=== PATIENT | female | born 1970 | race Caucasian/White ===

== ENCOUNTER 2022-06-13 11:22 | Emergency (ER) | payer OTHER, SELFPAY ==
--- NOTE | ~2022-06-13 | XR_ITS ---
Left Hand Technique: PA, oblique, and lateral views were obtained. Clinical History: Fifth digit injury Findings: No acute fracture or dislocation is seen. Osseous alignment is anatomic. Joint spaces are p reserved. Soft tissues are unremarkable. Impression: Unremarkable left hand. Reviewed, dictated and finalized at location . Impression: Unremarkable left hand.
[2022-06-13 11:39] VITALS: BP 194/128; PULSE 106; RESP 20; TEMP 36.6; O2SAT 99
--- NOTE | 2022-06-13 11:54 | ECG_ITS ---
Measurements Intervals [place] Rate: 104 P: 57 GA: 137 QRS: 40 QRSD: 92 T: 50 QT: 344 QTc: 454 Interpretive Statements SINUS TACHYCARDIA ABNORMAL RHYTHM ECG NO PREVIOUS ECG AVAILABLE FOR COMPARISON Electronically Signed On 06-13-2022 12:05:49 CDT by Corinne Simon M.D.
[2022-06-13 12:02] VITALS: BP 204/115; PULSE 119; RESP 16; O2SAT 100
--- NOTE | 2022-06-13 12:26 | ED.UPPEXIN ---
HPI - Extremity Injury (Upper) General Chief Complaint: Extremity Injury, Upper Stated Complaint: hand problem Time Seen by Provider: 06/13/22 12:03 History of Present Illness HPI narrative: Patient is a 52-year-old female presenting with hand tingling. Patient states that for the last 5 weeks her left pinky finger is felt tingly. States that she woke up about 5 weeks ago and noticed that it felt tingly. States that several days later the pinky became bruised and swollen. States that it was painful for several days. States that then the pain, swelling, bruising resolved. States that since that time her pinky has continued to feel tingly. States that she also cannot fully adduct it. States that sometimes she will feel tingling along the medial aspect of her hand as well. Denies any recent trauma. States that she has not seen her PCP for 30 years. No fevers or chills, headaches, numbness or weakness, chest pain, shortness of breath, cough, abdominal pain, nausea or vomiting, leg swelling. Related Data Allergies Allergy/AdvReac Type Severity Reaction Status Date / Time Penicillins Allergy Unknown Rash Verified 06/13/22 12:03 Review of Systems Review of Systems: All systems reviewed & are unremarkable except as noted in HPI and below Exam Narrative: GENERAL: Well-appearing, well-nourished, and in no acute distress. HEAD: Normocephalic, atraumatic. EYES: PERRLA and EOMI. ENT: Nares clear, no rhinorrhea or epistaxis. Mucous membranes moist. NECK: Supple. CHEST: Clear to auscultation. No respiratory distress. HEART: Regular rate and rhythm. Normal peripheral pulses. ABDOMEN: Soft, nontender, nondistended EXTREMITIES: left fifth finger held in abduction, pt unable to fully adduct it; ROM of b/l hands are otherwise intact; no sensory deficits though pt states left fifth finger feels tingly; no swelling or erythema or tenderness of any digits; no tenderness of wrists or elbows SKIN: Warm, dry, no rash. NEURO: No focal deficits. Alert and oriented x3. PSYCH: Normal mood and affect. Course Vital Signs Vital signs: Vital Signs Temperature 97.9 F 06/13/22 11:39 Pulse Rate 106 H 06/13/22 11:39 Respiratory Rate 20 06/13/22 11:39 Blood Pressure 194/128 H 06/13/22 11:39 Pulse Oximetry 99 06/13/22 11:39 Oxygen Delivery Room Air 06/13/22 11:39 Temperature 97.9 F 06/13/22 11:39 Pulse Rate 103 H 06/13/22 12:47 Respiratory Rate 20 06/13/22 12:47 Blood Pressure 195/127 H 06/13/22 12:47 Pulse Oximetry 99 06/13/22 12:47 Oxygen Delivery Room Air 06/13/22 11:39 MDM - Extremity Injury (Upper) MDM Narrative Medical decision making narrative: Patient is a 52-year-old female presenting with tingling of the left pinky finger for several weeks. Patient noted to be hypertensive and slightly tachycardic in triage so EKG was obtained. EKG per my interpretation shows sinus tachycardia, normal axis and intervals, no ST elevations or depressions. Patient denies any complaints other than tingling in her left pinky finger. Patient states that she has significant anxiety when she is at the doctors. States that she feels that her blood pressure and heart rate are related to anxiety. States that she feels extremely anxious right now. X-ray of the left fifth digit shows no acute osseous abnormalities. On exam, she denies any sensory deficits but she states that her left pinky is tingly. She is holding it in slight abduction and is unable to fully abduct. I suspect ulnar neuropathy affecting the left hand. Patient does state that she does a lot of crocheting and she makes pens that require really tight wrapping of her pinky finger. Advised that she abstain from these activities and follow-up with her PCP. Patient states that she has not seen her PCP in 30 years. Discussed with the patient the importance of following up with some especially regarding preventative care and reassessment of hypertension. Monisha
[2022-06-13 12:32] VITALS: BP 195/127; PULSE 98; RESP 23; O2SAT 98
[2022-06-13 12:47] VITALS: BP 195/127; PULSE 103; RESP 20; O2SAT 99
== END 2022-06-13 12:49 | disposition home or self-care (01) ==
PROVIDERS: Emergency Provider Emergency Medicine; PCP Emergency Medicine
DX: G56.22 Lesion of ulnar nerve, left upper limb (principal); I10 Essential (primary) hypertension; R00.0 Tachycardia, unspecified
CPT/HCPCS: 73130; 93005; 99283